=== PATIENT | female | born 1965 | race American Indian/Alaskan Native ===

== ENCOUNTER 2017-02-05 10:00 | Day surgery (SDC) | payer OTHER ==
[2017-02-05] MEDS ORDERED: NACL 0.9% 1000 ML 1,000 ML IV SCH (11:00)
--- NOTE | 2017-02-05 11:02 | Anesthesia Consultation ---
Anesthesia Consult and Med Hx Date of service: 02/05/17 - Airway Anesthetic Teeth Evaluation: Good ROM Head & Neck: Adequate Mental/Hyoid Distance: Adequate Mallampati Class: Class II Intubation Access Assessment: Probably Good - Pulmonary Exam CTA: Yes - Cardiac Exam Cardiac Exam: RRR - Pre-Operative Health Status ASA Pre-Surgery Classification: ASA3 Proposed Anesthetic Plan: MAC - Pulmonary Hx Smoking: Yes (marijuana, occasionally) - Cardiovascular System Hx Hypertension: Yes - Endocrine Hx Hypothyroidism: Yes (thyroidectomy 2011)
--- NOTE | 2017-02-05 11:03 | Anesthesia Day of Surgery ---
Anesthesia Day of Surgery - Day of Surgery Patient Examined: Yes Patient H&P Reviewed: Yes Patient is NPO: Yes
[2017-02-05] MEDS ORDERED: DIPRIVAN 10 MG/ML IV ONE ×3 (12:27→12:44)
--- NOTE | 2017-02-05 12:31 | Operative Report ---
Operative Report Operative Report: Date of procedure: 02/05/2017 Procedure: Colonoscopy. Attending physician: Missael Jeter MD Occupational Health And Safety Adviser: Missael Jeter MD Indication: Patient is a 51-year-old female who presents for screening colonoscopy. A colonoscopy serves to evaluate patient so that treatment may be directed based on the findings. Consent: Informed consent was obtained after advising the patient and family regarding nature of this procedure, its indications, potential benefits as well as possible complications including but not limited to bleeding perforation and adverse reaction to medication, infection as well as other cardiopulmonary complications. An informed written and verbal consent was then obtained after due opportunity was provided for questions and answers. Monitoring: Patient was monitored continuously with pulse oximetry and electrocardiographic recordings as well as blood pressure recordings. Vital signs remained stable throughout this procedure with no untoward events. Preoperative assessment: Patient was assessed immediately prior to this procedure for capacity to tolerate monitored anesthesia care and moderate sedation as well as general anesthesia. Patient's ASA classification is 2, Mallampati class is 2, Hyomental distance is 3. Instrument: [employer] video colonoscope Medications: Propofol given intravenously in divided doses. For details please refer to anesthesia records. Description of procedure: Patient was placed in the left lateral decubitus position after achieving sedation, a digital rectal examination was performed following which the colonoscope was introduced into the anal verge and advanced to the cecum which was identified by the ileocecal valve, the appendiceal orifice, as well as by the cecal strap and direct transillumination. The colonoscope was subsequently withdrawn with careful inspection of all mucosal surfaces. Patient tolerated this procedure well and was subsequently taken to the recovery room. The following findings were noted. Findings: Patient had a few scattered diverticula in the sigmoid colon. The rest of the colon to the cecum was normal. The preparation was adequate. On the retroflex view at the anal verge, patient had internal hemorrhoids. Patient also had an anal fissure. Impression: Mild Sigmoid colon Diverticulosis. Internal Hemorrhoids. Anal fissure. Plan: High-fiber diet. Daily sitz baths as needed 5% lidocaine ointment per rectum every 6 hours as needed Anusol HC suppositories daily at bedtime as needed. [id number] Stool softeners as needed. Repeat colonoscopy in 10 years.
[2017-02-05] MEDS ORDERED: WATER FOR IRRIG STERILE IR ONE (12:37)
--- NOTE | 2017-02-05 12:59 | Discharge Summary ---
Short Stay Discharge Plan Activity: advance as tolerated Weight Bearing Status: Weight Bear as Tolerated Diet: regular Follow up with: PRIMARY CARE, [Primary Care Provider] - 7 Days
[2017-02-05 13:21] VITALS: BP 125/65
--- NOTE | 2017-02-05 13:24 | Post Anesthesia Evaluation ---
- Post Anesthesia Evaluation Patient Participated: Yes Airway Patent: Yes Stable Respiratory Function: Yes Temp > 96.8F: Yes Pain Manageable: Yes Adequeate Hydration: Yes Anesthesia Complications: No Block Receding Appropriately: Not Applicable
== END 2017-02-05 10:01 | disposition home or self-care (01) ==
LOC: GIO 10:00
PROVIDERS: ATTEND Internal Medicine Gastroenterology
DX: Z12.11 Encounter for screening for malignant neoplasm of colon (principal); K57.30 Diverticulosis of large intestine without perforation or abscess without bleeding; K64.8 Other hemorrhoids; K60.2 Anal fissure, unspecified; I10 Essential (primary) hypertension; E03.9 Hypothyroidism, unspecified; F17.210 Nicotine dependence, cigarettes, uncomplicated; F12.90 Cannabis use, unspecified, uncomplicated; Z98.51 Tubal ligation status; Z98.890 Other specified postprocedural states; Z79.899 Other long term (current) drug therapy
CPT/HCPCS: 45378; 81025; J2704; J7030

== ENCOUNTER 2017-08-17 14:01 | Outpatient (CLI) | payer OTHER ==
--- NOTE | 2017-08-24 11:35 | Mammography Report ---
BILATERAL DIGITAL SCREENING MAMMOGRAM with CAD: 08/17/17 CLINICAL: Routine screening. COMPARISON:None available. However, a prior mammogram was apparently done at [facility]. FINDINGS: The breasts are heterogeneously dense, which may obscure small masses. Bilateral asymmetries require comparison with the prior mammogram or additional imaging. IMPRESSION: Bilateral asymmetries requiring further evaluation. BI-RADS CATEGORY: 0 -- Additional Evaluation Required RECOMMENDATION: Comparison with a previous mammogram. We will attempt to obtain a prior mammogram from [facility]. If we do not obtain a prior mammogram for comparison within 30 days, a revised report will be issued recommending a recall for additional imaging. Please be advised that the patient should not schedule an appointment for return until adequate time (at least 2 weeks) has passed for us to obtain the prior mammogram. ACR BI-RADS MAMMOGRAPHIC CODES: 0 = Needs additional imaging evaluation; 1 = Negative; 2 = Benign; 3 = Probably benign; 4 = Suspicious; 5 = Malignant; 6 = Known biopsy-proven malignancy COMMENT: 1. Dense breast tissue, i.e., adenosis, fibrocystic changes, etc., may obscure an underlying neoplasm. 2. Approximately 10% of cancers are not detected with mammography. 3. A negative mammography report should not delay biopsy if a clinically suspicious mass is present. COMMENT: Patient follow-up letters are generated via our [employer] application.
== END 2017-08-17 14:02 | disposition home or self-care (01) ==
LOC: MAMMO 14:01
PROVIDERS: ATTEND Advanced Practice Midwife
DX: Z12.31 Encounter for screening mammogram for malignant neoplasm of breast (principal)
CPT/HCPCS: 77067; G0202

== ENCOUNTER 2019-06-22 18:26 | Emergency (ER) | payer OTHER ==
--- NOTE | 2019-06-22 18:51 | Emergency Department Report ---
Blank Doc - Documentation Documentation: 53-year-old female that presents with left sided chest pain. Denies any SOB. Movement makes it worse and resolved with rest. This initial assessment/diagnostic orders/clinical plan/treatment(s) is/are subject to change based on patient's health status, clinical progression and re- assessment by fellow clinical providers in the ED. Further treatment and workup at subsequent clinical providers discretion. Patient/guardians urged not to elope from the ED as their condition may be serious if not clinically assessed and managed. Initial orders include: 1- Patient sent to [facility] for further evaluation and treatment 2- EKG 3- CXR
--- NOTE | 2019-06-22 19:45 | XRay Report ---
CHEST 2 VIEWS, 06/22/2019 7:18 PM INDICATION: Cough COMPARISON: Chest radiograph, 02/18/2014 FINDINGS: Support devices: None Heart: The cardiac silhouette is normal in size. Lungs/pleura: There is no focal airspace consolidation or significant pleural effusion Additional findings: Evaluation of bony structures demonstrates no evidence of acute bony abnormality . IMPRESSION: 1. No evidence of acute cardiopulmonary process. Signer Name: Kamilla Neely MD Signed: 06/22/2019 7:40 PM Workstation Name: [id number]
--- NOTE | 2019-06-22 20:19 | Emergency Department Report ---
ED Chest Pain HPI - General Chief Complaint: Chest Pain Stated Complaint: CHEST PAIN/LAURA/LFT SIDE PAIN Time Seen by Provider: 06/22/19 18:49 Source: patient Mode of arrival: Ambulatory Limitations: No Limitations - History of Present Illness Initial Comments: This is a 53-year-old -[place] female who presents to the emergency room with left-sided chest pain since this morning. Past medical history of hypertension and anemia. Patient also reports pain is worse with deep breaths and movement. She denies fever, chills, cough, nausea, vomiting, or palpitations. MD Complaint: chest pain -: This morning Onset: awoke with symptoms Pain Location: left chest Pain Radiation: none Severity: moderate Severity scale (0 -10): 8 Quality: sharp Consistency: intermittent Improves With: leaning foward, remaining still Worsens With: exertion, inspiration, movement Other Symptoms: denies: cough, fever, syncope, rash, acid taste in mouth, leg swelling, palpitations, burping Treatments Prior to Arrival: none Aspirin use within the Past 7 Days: (0) No - Related Data Home Medications Medication Instructions Recorded Confirmed Last Taken Bisoprolol/Hctz [Ziac 10-6.25] 1 each PO DAILY 06/01/13 08/25/15 08/25/15 yes Levothyroxine [Synthroid] 112 mcg PO QAM 02/06/15 08/25/15 02/05/17 09:00 yes amLODIPine 2.5 mg PO QDAY 08/25/15 08/25/15 02/05/17 09:00 yes Previous Rx's Medication Instructions Recorded Last Taken Type Acetaminophen/Codeine [Tylenol #3] 1 tab PO Q6H PRN #15 tab 09/18/15 Unknown Rx Indomethacin 50 mg PO Q8H PRN #20 capsule 06/22/19 Unknown Rx Methocarbamol [Robaxin] 500 mg PO BID PRN #15 tablet 06/22/19 Unknown Rx Allergies Allergy/AdvReac Type Severity Reaction Status Date / Time morphine AdvReac ABD Verified 06/22/19 18:27 CRAMPING Heart Score - HEART Score History: Slightly suspicious EKG: Normal Age: 45-65 Risk factors: 1-2 risk factors Troponin: < normal limit HEART Score: 2 ED Review of Systems ROS: Stated complaint: CHEST PAIN/LAURA/LFT SIDE PAIN Other details as noted in HPI Constitutional: denies: chills, fever Respiratory: denies: cough, shortness of breath, wheezing Cardiovascular: chest pain, dyspnea on exertion. denies: palpitations, edema Gastrointestinal: denies: abdominal pain, nausea, diarrhea Musculoskeletal: denies: back pain, joint swelling, arthralgia Skin: denies: rash, lesions Neurological: denies: headache, weakness, paresthesias Psychiatric: denies: anxiety, depression ED Past Medical Hx - Past Medical History Hx Hypertension: Yes Additional medical history: THYROID - Surgical History Hx Cholecystectomy: Yes Additional Surgical History: Thyroidectomy due to goiter, tubal - Social History Smoking Status: Never Smoker Substance Use Type: Marijuana - Medications Home Medications: Home Medications Medication Instructions Recorded Confirmed Last Taken Type Bisoprolol/Hctz [Ziac 10-6.25] 1 each PO DAILY 06/01/13 08/25/15 08/25/15 History yes Levothyroxine [Synthroid] 112 mcg PO QAM 02/06/15 08/25/15 02/05/17 09:00 History yes amLODIPine 2.5 mg PO QDAY 08/25/15 08/25/15 02/05/17 09:00 History yes Acetaminophen/Codeine [Tylenol #3] 1 tab PO Q6H PRN #15 tab 09/18/15 Unknown Rx Indomethacin 50 mg PO Q8H PRN #20 capsule 06/22/19 Unknown Rx Methocarbamol [Robaxin] 500 mg PO BID PRN #15 tablet 06/22/19 Unknown Rx ED Physical Exam - General Limitations: No Limitations General appearance: alert, in no apparent distress - ENT ENT exam: Present: mucous membranes moist - Respiratory Respiratory exam: Present: normal lung sounds bilaterally, chest wall tenderness (tenderness along the left costochondral joint, no erythema or swelling). Absent: respiratory distress, wheezes, rales, rhonchi, stridor - Cardiovascular Cardiovascular Exam: Present: regular rate, normal rhythm. Absent: systolic murmur, diastolic murmur, rubs, gallop - GI/Abdominal GI/Abdominal exam: Present: soft, normal bowel sounds. Absent: distended, tenderness, guarding, rebound, rigid - Neurological Exam Neurological exam: Present: alert, oriented X3, normal gait - Psychiatric Psychiatric exam: Present: normal affect, normal mood - Skin Skin exam: Present: warm, dry, intact, normal color. Absent: rash ED Course Vital Signs 06/22/19 06/22/19 18:51 21:27 Temperature 97.2 F L Pulse Rate 91 H Respiratory 20 16 Rate Blood Pressure 173/79 O2 Sat by Pulse 100 Oximetry ED Medical Decision Making - Lab Data Result diagrams: 06/22/19 21:28 06/22/19 21:28 Lab Results 06/22/19 06/22/19 06/22/19 Range/Units 21:28 21:28 21:28 WBC 6.9 (4.5-11.0) K/mm3 RBC 4.19 (3.65-5.03) M/mm3 Hgb 13.5 (10.1-14.3) gm/dl Hct 39.7 (30.3-42.9) % MCV 95 (79-97) fl MCH 32 (28-32) pg MCHC 34 (30-34) % RDW 13.1 L (13.2-15.2) % Plt Count 254 (140-440) K/mm3 Lymph % (Auto) 25.0 (13.4-35.0) % [place] % (Auto) 8.6 H (0.0-7.3) % Eos % (Auto) 0.9 (0.0-4.3) % Baso % (Auto) 1.3 (0.0-1.8) % Lymph # 1.7 (1.2-5.4) K/mm3 [place] # 0.6 (0.0-0.8) K/mm3 Eos # 0.1 (0.0-0.4) K/mm3 Baso # 0.1 (0.0-0.1) K/mm3 Seg Neutrophils % 64.2 (40.0-70.0) % Seg Neutrophils # 4.4 (1.8-7.7) K/mm3 D-Dimer 135.00 (0-234) ng/mlDDU Sodium 140 (137-145) mmol/L Potassium 3.6 (3.6-5.0) mmol/L Chloride 98.9 (98-107) mmol/L Carbon Dioxide 25 (22-30) mmol/L Anion Gap 20 mmol/L BUN 14 (7-17) mg/dL Creatinine 0.8 (0.7-1.2) mg/dL Estimated GFR > 60 ml/min BUN/Creatinine Ratio 18 % Glucose 131 H (65-100) mg/dL Calcium 9.7 (8.4-10.2) mg/dL Total Bilirubin 0.20 (0.1-1.2) mg/dL AST 17 (5-40) units/L ALT 17 (7-56) units/L Alkaline Phosphatase 58 (35-129) units/L Troponin T < 0.010 (0.00-0.029) ng/mL Total Protein 7.4 (6.3-8.2) g/dL Albumin 4.7 (3.9-5) g/dL Albumin/Globulin Ratio 1.7 % - EKG Data -: No EKG Interpreted by Me (EKG interpreted by attending) EKG shows normal: sinus rhythm Rate: normal - Medical Decision Making Patient was examined by me. Patient is nontoxic appearing and stable. Vitals are normal. Past medical history of hypertension and pleurisy. Obtained labs, EKG, chest x-ray. Chest x-ray negative for acute cardiopulmonary findings. EKG sinus rhythm. There is reproducible pain on the left costochondral joint and pain with movement of left upper extremity. Given analgesics while in the ER. Patient reports feeling a better. Negative tachycardia, tachypnea, pericardial friction rub, refills, and hypotension. Patient was here and history of pleurisy but I don't think today symptoms are related. Negative d-dimer and troponin, all other labs are unremarkable. Acute chest pain. Start Robaxin and indomethacin. Patient informed of results. Instructed to take Tylenol or ibuprofen for pain. Follow up with PCP or return to the ER with worsening symptoms. Patient discharged home in stable condition. - Differential Diagnosis pulmonary embolism, GERD, congestive heart failure, and pneumonia Critical care attestation.: If time is entered above; I have spent that time in minutes in the direct care of this critically ill patient, excluding procedure time. ED Disposition Clinical Impression: Acute chest pain Disposition: - TO HOME OR SELFCARE Is pt being admited?: No Condition: Stable Instructions: Chest Pain (ED), Costochondritis (ED) Additional Instructions: Take indomethacin and Robaxin as needed for pain control. Don't take Robaxin while driving or operating heavy machinery, may cause drowsiness. Follow up with primary care provider in 24-72 hours. Return to ER if chest pain unresolved, shortness of breath, or difficulty breathing. Prescriptions: Indomethacin 50 mg PO Q8H PRN #20 capsule PRN Reason: Pain , Severe (7-10) Methocarbamol [Robaxin] 500 mg PO BID PRN #15 tablet PRN Reason: Muscle Spasm Referrals: RICO ABERNATHY MD [Staff Physician] - 3-5 Days [facility] [Provider Group] - 3-5 Days [facility] [Provider Group] - 3-5 Days Forms: Work/School Release Form(ED) Time of Disposition: 22:34
[2019-06-22] MEDS ORDERED: KETOROLAC 30 MG/1 ML INJ IV ONE (21:05)
[2019-06-22] MEDS ORDERED: ONDANSETRON 4 MG/2 ML INJ ONE (21:33)
[2019-06-22 21:36] LABS: Basophils # (Auto) 0.1 K/mm3 (0.0-0.1); Basophils % (Auto) 1.3 % (0.0-1.8); Eosinophils # (Auto) 0.1 K/mm3 (0.0-0.4); Eosinophils % (Auto) 0.9 % (0.0-4.3); Hematocrit 39.7 % (30.3-42.9); Hemoglobin 13.5 gm/dl (10.1-14.3); Lymphocytes # (Auto) 1.7 K/mm3 (1.2-5.4); Mean Corpuscular HGB Conc 34 % (30-34); Mean Corpuscular Volume 95 fl (79-97); Monocytes # (Auto) 0.6 K/mm3 (0.0-0.8); Monocytes % (Auto) 8.6 % (0.0-7.3); Platelet Count 254 K/mm3 (140-440); Red Blood Count 4.19 M/mm3 (3.65-5.03); Red Cell Distribution Width 13.1 % (13.2-15.2)
[2019-06-22] MEDS ORDERED: ONDANSETRON 4 MG/2 ML INJ IV ONE (21:36)
[2019-06-22 22:01] LABS: Alanine Aminotransferase 17 units/L (7-56); Albumin 4.7 g/dL (3.9-5); BUN/Creatinine Ratio 18; Blood Urea Nitrogen 14 mg/dL (7-17); Calcium 9.7 mg/dL (8.4-10.2); Hemolysis Index 14
[2019-06-22 23:31] VITALS: BP 168/80
== END 2019-06-22 23:27 | disposition home or self-care (01) ==
LOC: ED 18:26
DX: R09.1 Pleurisy (principal); I10 Essential (primary) hypertension; Z88.5 Allergy status to narcotic agent; Z79.899 Other long term (current) drug therapy; Z90.49 Acquired absence of other specified parts of digestive tract; E89.0 Postprocedural hypothyroidism
CPT/HCPCS: 36415; 71046; 80053; 84484; 85025; 85379; 93005; 93010; 96374; 96375; 99284; J1885; J2405

== ENCOUNTER 2019-07-15 12:57 | Outpatient (CLI) | payer OTHER ==
--- NOTE | 2019-07-16 12:56 | Mammography Report ---
DIGITAL SCREENING MAMMOGRAM WITH CAD, 07/15/2019 INDICATION: Routine screening mammography. TECHNIQUE: Digital bilateral 2D mammography was obtained in the craniocaudal and mediolateral obliq ue projections. This examination was interpreted with the benefit of Computer-Aided Detection analysi s. COMPARISON: 08/17/2017 and 05/11/2015 FINDINGS: Breast Density: The breasts are heterogeneously dense, which may obscure small masses. There is no evidence of dominant mass, suspicious calcifications or architectural distortion in eithe r breast. A right inner asymmetry on the CC view is unchanged compared to previous exams. IMPRESSION: No mammographic evidence of malignancy. Follow up recommendation: Routine yearly BI-RADS Category 2: Benign. A "normal" or negative report should not discourage follow up or biopsy of a clinically significant f inding. A written summary of these findings will be mailed to the patient. The patient will be entered into a mammography reporting system which will generate a reminder letter for the patient's next appointmen t at the appropriate interval. The [employer] recommends yearly mammograms starting at age 40 and continuing as l wolfgang as a woman is in good health. Breast MRI is recommended for women with an approximate 20-25% or greater lifetime risk of breast cancer, including women with a strong family history of breast or ova matthew cancer or who have been treated for Hodgkin's disease. Signer Name: Marco Antonio Ron MD Signed: 07/16/2019 12:51 PM Workstation Name: [id number]
== END 2019-07-15 12:58 | disposition home or self-care (01) ==
LOC: MAMMO 12:57
PROVIDERS: ATTEND Family Medicine
DX: Z12.31 Encounter for screening mammogram for malignant neoplasm of breast (principal); I10 Essential (primary) hypertension; Z88.5 Allergy status to narcotic agent
CPT/HCPCS: 77067

== ENCOUNTER 2020-08-09 15:08 | Outpatient (CLI) | payer OTHER ==
--- NOTE | 2020-08-09 17:57 | Mammography Report ---
DIGITAL SCREENING MAMMOGRAM WITH CAD, 08/09/2020 CLINICAL INFORMATION / INDICATION: Routine screening mammography. TECHNIQUE: Digital bilateral 2D mammography was obtained in the craniocaudal and mediolateral obliqu e projections. This examination was interpreted with the benefit of Computer-Aided Detection analysis . COMPARISON: 08/17/2017, 05/11/2015 FINDINGS: Breast Density: The breasts are heterogeneously dense, which may obscure small masses. No dominant mass, suspicious calcifications, or architectural distortion in either breast. No interval change. IMPRESSION: No mammographic evidence of malignancy. Follow up recommendation: Routine yearly BI-RADS Category 1: Negative. A "normal" or negative report should not discourage follow up or biopsy of a clinically significant f inding. A written summary of these findings will be mailed to the patient. The patient will be entered into a mammography reporting system which will generate a reminder letter for the patient's next appointmen t at the appropriate interval. The [employer] recommends yearly mammograms starting at age 40 and continuing as l wolfgang as a woman is in good health. Breast MRI is recommended for women with an approximate 20-25% or greater lifetime risk of breast cancer, including women with a strong family history of breast or ova matthew cancer or who have been treated for Hodgkin's disease. Signer Name: Constance Livingston MD Signed: 08/09/2020 5:53 PM Workstation Name: [id number]
== END 2020-08-09 15:09 | disposition home or self-care (01) ==
LOC: MAMMO 15:08
PROVIDERS: ATTEND Family Medicine
DX: Z12.31 Encounter for screening mammogram for malignant neoplasm of breast (principal)
CPT/HCPCS: 77067

== ENCOUNTER 2021-01-22 09:58 | Emergency (ER) | payer OTHER ==
[2021-01-22 10:04] VITALS: BP 186/105
[2021-01-22] MEDS ORDERED: IBUPROFEN 800 MG TAB PO ONE (12:41)
== END 2021-01-22 13:12 | disposition home or self-care (01) ==
LOC: ED 09:58
DX: S70.02XA Contusion of left hip, initial encounter (principal); M54.6 Pain in thoracic spine; I10 Essential (primary) hypertension; Z90.49 Acquired absence of other specified parts of digestive tract; Z98.890 Other specified postprocedural states; Z79.899 Other long term (current) drug therapy; Z88.8 Allergy status to other drugs, medicaments and biological substances; W10.9XXA Fall (on) (from) unspecified stairs and steps, initial encounter; Y93.89 Activity, other specified; Y92.89 Other specified places as the place of occurrence of the external cause; Y99.8 Other external cause status
CPT/HCPCS: 71046; 72100

== ENCOUNTER 2021-01-25 12:03 | Emergency (ER) | payer OTHER ==
[2021-01-25] MEDS ORDERED: ASPIRIN 325 MG TAB PO ONE (12:10)
--- NOTE | 2021-01-25 13:03 | XRay Report ---
CHEST 2 VIEWS INDICATION / CLINICAL INFORMATION: Chest pain. COMPARISON: 01/22/21 FINDINGS: SUPPORT DEVICES: None. HEART / MEDIASTINUM: No significant abnormality. LUNGS / PLEURA: No significant pulmonary or pleural abnormality. No pneumothorax. ADDITIONAL FINDINGS: No significant additional findings. IMPRESSION: 1. No acute findings. No change. Signer Name: Michael Rajan MD Signed: 01/25/2021 12:59 PM Workstation Name: [id number]
--- NOTE | 2021-01-25 13:03 | Event Note ---
ED Screening Note Date of service: 01/25/21 Time: 13:00 ED Screening Note: 55-year-old female was sent to the ER today by her PCP for chest pain, shortness of breath and to get a CT chest to rule out PE. Patient states that she started with left-sided chest pain about 3 days ago. Is been constant in nature. She states that the pain is worse when she takes a deep breath but also when she moves. She also reports left leg pain which she has been having since about Sunday morning but she states that it was related to an injury. She did have it checked out here and had an x-ray but she states that she still continues to have pain to the posterior aspect of her left leg. Patient states that her PCP did a chest x-ray which showed that she had enlarged heart as well. Has medical history significant for hypertension and thyroid disease. She also reports questionable history of PE a few years ago. She states that she was started on Coumadin but only stayed on it for 30 days. This initial assessment/diagnostic orders/clinical plan/treatment(s) is/are subject to change based on patients health status, clinical progression and re- assessment by fellow clinical providers in the ED. Further treatment and workup at subsequent clinical providers discretion. Patient/guardian urged not to elope from the ED as their condition may be serious if not clinically assessed and managed. Initial orders include: Chest pain order set including CTA chest and ultrasound of the left leg
--- NOTE | 2021-01-25 13:23 | Emergency Department Report ---
<GADIELTIKA Destni - Last Filed: 01/25/21 16:37> ED Chest Pain HPI - General Chief Complaint: Chest Pain Stated Complaint: CHEST PAIN PUI?: No Time Seen by Provider: 01/25/21 13:20 Source: patient Mode of arrival: Ambulatory Limitations: No Limitations - History of Present Illness Initial Comments: Patient is a 55-year-old -[place] obese female that comes to the emergency room with numerous complaints. She states that her PCP sent her to make sure she does not have a pulmonary embolus. She has no hypotension, tachycardia or hypoxia. She was endorsing pleuritic chest pain worse with inspiration over the last 3 days. She also states that her right leg hurts from a prior ankle injury. Patient has denied shortness of breath. She denies fever or chills. She denies any recent trauma. MD Complaint: chest pain -: Gradual, days(s) Onset: other Pain Location: left chest Severity scale (0 -10): 10 Quality: sharp Consistency: intermittent Improves With: nothing Worsens With: inspiration re: nausea Treatments Prior to Arrival: none - Related Data On Oral Contraceptives: No Home Medications Medication Instructions Recorded Confirmed Last Taken Bisoprolol/Hctz [Ziac 10-6.25] 1 each PO DAILY 06/01/13 08/25/15 08/25/15 yes Levothyroxine [Synthroid] 112 mcg PO QAM 02/06/15 08/25/15 02/05/17 09:00 yes amLODIPine 2.5 mg PO QDAY 08/25/15 08/25/15 02/05/17 09:00 yes Allergies Allergy/AdvReac Type Severity Reaction Status Date / Time morphine AdvReac ABD Verified 06/22/19 18:27 CRAMPING Heart Score - HEART Score History: Slightly suspicious EKG: Normal Age: 45-65 Risk factors: 1-2 risk factors Troponin: < normal limit (1220) HEART Score: 2 - EKG Read Time Time EKG Completed: 12:20 EKG Read Time: 12:20 ED Review of Systems Comment: All other systems reviewed and negative ED Past Medical Hx - Past Medical History Previous Medical History?: Yes Hx Hypertension: Yes Hx CVA: No Hx Heart Attack/AMI: No Hx Congestive Heart Failure: No Hx Diabetes: No Hx Deep Vein Thrombosis: No Hx Pulmonary Embolism: Yes (coumadin x 1 m) Hx GERD: No Hx Liver Disease: No Hx Renal Disease: No Hx of Cancer: No Hx Sickle Cell Disease: No Hx Arthritis: No Hx Headaches / Migraines: No Hx Seizures: No Hx Kidney Stones: No Hx Psychiatric Treatment: No Hx Asthma: No Hx COPD: No Hx Tuberculosis: No Hx Dementia: No Hx HIV: No Additional medical history: THYROID - Surgical History Past Surgical History?: Yes Hx Cholecystectomy: Yes Additional Surgical History: Thyroidectomy due to goiter, tubal - Family History Family history: no significant - Social History Smoking Status: Never Smoker Substance Use Type: None - Medications Home Medications: Home Medications Medication Instructions Recorded Confirmed Last Taken Type Bisoprolol/Hctz [Ziac 10-6.25] 1 each PO DAILY 06/01/13 08/25/15 08/25/15 History yes Levothyroxine [Synthroid] 112 mcg PO QAM 02/06/15 08/25/15 02/05/17 09:00 History yes amLODIPine 2.5 mg PO QDAY 08/25/15 08/25/15 02/05/17 09:00 History yes ED Physical Exam - General Limitations: No Limitations General appearance: alert, in no apparent distress - Head Head exam: Present: atraumatic, normocephalic - Eye Eye exam: Present: normal appearance - ENT ENT exam: Present: mucous membranes moist - Neck Neck exam: Present: normal inspection - Respiratory Respiratory exam: Present: normal lung sounds bilaterally. Absent: respiratory distress - Cardiovascular Cardiovascular Exam: Present: regular rate, normal rhythm. Absent: systolic murmur, diastolic murmur, rubs, gallop - GI/Abdominal GI/Abdominal exam: Present: soft, normal bowel sounds - Extremities Exam Extremities exam: Present: normal inspection - Back Exam Back exam: Present: normal inspection - Neurological Exam Neurological exam: Present: alert, oriented X3 - Psychiatric Psychiatric exam: Present: normal affect, normal mood - Skin Skin exam: Present: warm, dry, intact, normal color. Absent: rash SACHIN score - Sachin Score Age > 65: (0) No Aspirin use within the Past 7 Days: (0) No 3 or more CAD Risk Factors: (0) No 2 or more Angina events in past 24 hrs: (0) No Known CAD with more than 50% Stenosis: (0) No Elevated Cardiac Markers: (0) No ST Deviation Greater than 0.5mm: (0) No SACHIN Score: 0 ED Medical Decision Making - Lab Data Result diagrams: 01/25/21 13:30 01/25/21 13:30 - EKG Data -: EKG Interpreted by Me EKG shows normal: sinus rhythm Rate: normal - EKG Data When compared to previous EKG there are: no significant change Interpretation: no acute changes - Radiology Data Radiology results: report reviewed, image reviewed see report - Medical Decision Making Lab Results 01/25/21 01/25/21 01/25/21 Range/Units 13:30 13:30 13:30 WBC 7.5 (4.5-11.0) K/mm3 RBC 3.86 (3.65-5.03) M/mm3 Hgb 12.4 (10.1-14.3) gm/dl Hct 35.9 (30.3-42.9) % MCV 93 (79-97) fl MCH 32 (28-32) pg MCHC 35 H (30-34) % RDW 13.1 L (13.2-15.2) % Plt Count 248 (140-440) K/mm3 Lymph % (Auto) 29.3 (13.4-35.0) % Swain % (Auto) 8.6 H (0.0-7.3) % Eos % (Auto) 1.9 (0.0-4.3) % Baso % (Auto) 1.4 (0.0-1.8) % Lymph # (Auto) 2.2 (1.2-5.4) K/mm3 Swain # (Auto) 0.6 (0.0-0.8) K/mm3 Eos # (Auto) 0.1 (0.0-0.4) K/mm3 Baso # (Auto) 0.1 (0.0-0.1) K/mm3 Seg Neutrophils % 58.8 (40.0-70.0) % Seg Neutrophils # 4.4 (1.8-7.7) K/mm3 Sodium 136 L (137-145) mmol/L Potassium 3.6 (3.6-5.0) mmol/L Chloride 95.9 L (98-107) mmol/L Carbon Dioxide 30 (22-30) mmol/L Anion Gap 14 mmol/L BUN 15 (7-17) mg/dL Creatinine 0.7 (0.6-1.2) mg/dL Estimated GFR > 60 ml/min BUN/Creatinine Ratio 21 % Glucose 83 (65-100) mg/dL Calcium 9.8 (8.4-10.2) mg/dL Total Bilirubin 0.30 (0.1-1.2) mg/dL AST 20 (5-40) units/L ALT 16 (7-56) units/L Alkaline Phosphatase 58 (35-129) units/L Troponin T < 0.010 (0.00-0.029) ng/mL NT-Pro-B Natriuret Pep 49.22 (0-900) pg/mL Total Protein 7.8 (6.3-8.2) g/dL Albumin 4.6 (3.9-5) g/dL Albumin/Globulin Ratio 1.4 % labs noted 12 lead noted xray chest noted normal us neg DVT CT noted Patient has been updated on the findings of all of her test results and is being discharged home with PCP follow-up. PCP will need to determine if she needs follow-up further work-up with cardiology and/or pulmonology. Patient verbalizes understanding of discharge plan of care. On discharge she is alert and oriented. No acute distress. No chest pain. No shortness of breath. She is ambulatory, nontoxic and sey-xdz-dxorceart. - Differential Diagnosis ro pe ED Disposition Clinical Impression: Encounter for medical care, Pleuritic chest pain Disposition: DC-01 TO HOME OR SELFCARE Is pt being admited?: No Does the pt Need Aspirin: No Condition: Stable Instructions: Nonspecific Chest Pain, Adult Additional Instructions: follow up with pcp let your pcp know labs/US/xray and CT completed today you may need to see a heart doctor or specialist for tests not done in the ER diet and activity as tolerated over the counter pain medications if needed stay well hydrated with water. Referrals: PRIMARY CARE, [Primary Care Provider] - 3-5 Days RICO ABERNATHY MD [Staff Physician] - 3-5 Days Time of Disposition: 15:26 <TEA IRENE - Last Filed: 01/28/21 06:59> Heart Score - HEART Score History: Slightly suspicious EKG: Non-specific Age: 45-65 Risk factors: 1-2 risk factors Troponin: < normal limit HEART Score: 3 - Critical Actions Critical Actions: 0-3 pts:0.9-1.7%risk of adverse cardiac event.Candidate for discharge ED Review of Systems ROS: Stated complaint: CHEST PAIN Other details as noted in HPI ED Course Vital Signs 01/25/21 01/25/21 01/25/21 12:06 13:20 13:29 Temperature 98.6 F Pulse Rate 76 77 70 Respiratory 18 12 19 Rate Blood Pressure Blood Pressure 185/92 173/57 [Right] O2 Sat by Pulse 98 100 100 Oximetry 01/25/21 01/25/21 01/25/21 13:31 14:05 14:15 Temperature Pulse Rate 67 Respiratory 14 Rate Blood Pressure 150/57 156/71 171/74 Blood Pressure [Right] O2 Sat by Pulse 99 99 100 Oximetry 01/25/21 01/25/21 01/25/21 14:31 14:45 15:01 Temperature Pulse Rate Respiratory Rate Blood Pressure 159/68 160/74 150/62 Blood Pressure [Right] O2 Sat by Pulse 99 100 100 Oximetry 01/25/21 01/25/21 01/25/21 15:15 15:31 15:52 Temperature Pulse Rate Respiratory Rate Blood Pressure 160/74 148/65 148/65 Blood Pressure [Right] O2 Sat by Pulse 100 100 88 Oximetry 01/25/21 01/25/21 16:01 16:15 Temperature Pulse Rate Respiratory Rate Blood Pressure 143/56 148/65 Blood Pressure [Right] O2 Sat by Pulse 100 96 Oximetry ED Medical Decision Making - Lab Data Result diagrams: 01/25/21 13:30 01/25/21 13:30 Vital Signs 01/25/21 01/25/21 01/25/21 12:06 13:20 13:29 Temperature 98.6 F Pulse Rate 76 77 70 Respiratory 18 12 19 Rate Blood Pressure Blood Pressure 185/92 173/57 [Right] O2 Sat by Pulse 98 100 100 Oximetry 01/25/21 01/25/21 01/25/21 13:31 14:05 14:15 Temperature Pulse Rate 67 Respiratory 14 Rate Blood Pressure 150/57 156/71 171/74 Blood Pressure [Right] O2 Sat by Pulse 99 99 100 Oximetry 01/25/21 01/25/21 01/25/21 14:31 14:45 15:01 Temperature Pulse Rate Respiratory Rate Blood Pressure 159/68 160/74 150/62 Blood Pressure [Right] O2 Sat by Pulse 99 100 100 Oximetry 01/25/21 01/25/21 01/25/21 15:15 15:31 15:52 Temperature Pulse Rate Respiratory Rate Blood Pressure 160/74 148/65 148/65 Blood Pressure [Right] O2 Sat by Pulse 100 100 88 Oximetry 01/25/21 01/25/21 16:01 16:15 Temperature Pulse Rate Respiratory Rate Blood Pressure 143/56 148/65 Blood Pressure [Right] O2 Sat by Pulse 100 96 Oximetry Lab Results 01/25/21 01/25/21 01/25/21 Range/Units 13:30 13:30 13:30 WBC 7.5 (4.5-11.0) K/mm3 RBC 3.86 (3.65-5.03) M/mm3 Hgb 12.4 (10.1-14.3) gm/dl Hct 35.9 (30.3-42.9) % MCV 93 (79-97) fl MCH 32 (28-32) pg MCHC 35 H (30-34) % RDW 13.1 L (13.2-15.2) % Plt Count 248 (140-440) K/mm3 Lymph % (Auto) 29.3 (13.4-35.0) % Swain % (Auto) 8.6 H (0.0-7.3) % Eos % (Auto) 1.9 (0.0-4.3) % Baso % (Auto) 1.4 (0.0-1.8) % Lymph # (Auto) 2.2 (1.2-5.4) K/mm3 Swain # (Auto) 0.6 (0.0-0.8) K/mm3 Eos # (Auto) 0.1 (0.0-0.4) K/mm3 Baso # (Auto) 0.1 (0.0-0.1) K/mm3 Seg Neutrophils % 58.8 (40.0-70.0) % Seg Neutrophils # 4.4 (1.8-7.7) K/mm3 Sodium 136 L (137-145) mmol/L Potassium 3.6 (3.6-5.0) mmol/L Chloride 95.9 L (98-107) mmol/L Carbon Dioxide 30 (22-30) mmol/L Anion Gap 14 mmol/L BUN 15 (7-17) mg/dL Creatinine 0.7 (0.6-1.2) mg/dL Estimated GFR > 60 ml/min BUN/Creatinine Ratio 21 % Glucose 83 (65-100) mg/dL Calcium 9.8 (8.4-10.2) mg/dL Total Bilirubin 0.30 (0.1-1.2) mg/dL AST 20 (5-40) units/L ALT 16 (7-56) units/L Alkaline Phosphatase 58 (35-129) units/L Troponin T < 0.010 (0.00-0.029) ng/mL NT-Pro-B Natriuret Pep 49.22 (0-900) pg/mL Total Protein 7.8 (6.3-8.2) g/dL Albumin 4.6 (3.9-5) g/dL Albumin/Globulin Ratio 1.4 % - EKG Data -: EKG Interpreted by Me EKG shows normal: sinus rhythm Rate: normal Critical care attestation.: If time is entered above; I have spent that time in minutes in the direct care of this critically ill patient, excluding procedure time. ED Disposition Is pt being admited?: No Does the pt Need Aspirin: No
[2021-01-25 13:48] LABS: Basophils # (Auto) 0.1 K/mm3 (0.0-0.1); Basophils % (Auto) 1.4 % (0.0-1.8); Eosinophils # (Auto) 0.1 K/mm3 (0.0-0.4); Eosinophils % (Auto) 1.9 % (0.0-4.3); Hematocrit 35.9 % (30.3-42.9); Hemoglobin 12.4 gm/dl (10.1-14.3); Lymphocytes # (Auto) 2.2 K/mm3 (1.2-5.4); Lymphocytes % (Auto) 29.3 % (13.4-35.0); Mean Corpuscular HGB Conc 35 % (30-34); Mean Corpuscular Volume 93 fl (79-97); Monocytes # (Auto) 0.6 K/mm3 (0.0-0.8); Monocytes % (Auto) 8.6 % (0.0-7.3); Platelet Count 248 K/mm3 (140-440); Red Blood Count 3.86 M/mm3 (3.65-5.03); Red Cell Distribution Width 13.1 % (13.2-15.2)
--- NOTE | 2021-01-25 14:06 | Vascular Lab Report ---
VL venous duplex LE LT INDICATION / CLINICAL INFORMATION: leg pain. TECHNIQUE: Duplex doppler imaging was performed using venous compression and other maneuvers. COMPARISON: None available. FINDINGS: No venous thrombosis is identified within the visualized extremity vasculature. ADDITIONAL FINDINGS: None. IMPRESSION: 1. No sonographic evidence for DVT in the visualized left lower extremity vasculature. Signer Name: Parker Lazcano MD Signed: 01/25/2021 2:02 PM Workstation Name: [id number]
[2021-01-25] MEDS ORDERED: ONDANSETRON 4 MG/2 ML INJ IV ONE (14:12)
[2021-01-25 14:14] LABS: Alanine Aminotransferase 16 units/L (7-56); Albumin 4.6 g/dL (3.9-5); Blood Urea Nitrogen 15 mg/dL (7-17); Calcium 9.8 mg/dL (8.4-10.2); Hemolysis Index 33
[2021-01-25 14:15] LABS: BUN/Creatinine Ratio 21
--- NOTE | 2021-01-25 16:26 | Cat Scan Report ---
CTA CHEST WITH IV CONTRAST INDICATION / CLINICAL INFORMATION: ro PE; per PE protocol 100 ML OMNI 350 . TECHNIQUE: Axial CT images were obtained through the chest after injection of 100 cc Omnipaque 300 milligrams pe rcent IV contrast. 3 plane MIP and/or 3D reconstructions were produced. All CT scans at this location are performed using CT dose reduction for ALARA by means of automated exposure control. COMPARISON: None available. FINDINGS: PULMONARY ARTERIES: No pulmonary emboli. THORACIC AORTA: No significant abnormality. HEART: No significant abnormality. CORONARY ARTERIES: No significant calcification. PLEURA: No pleural effusion. No pneumothorax. LYMPH NODES: No significant adenopathy. LUNGS: No acute air space or interstitial disease. ADDITIONAL FINDINGS: None. UPPER ABDOMEN: No acute findings. SKELETAL STRUCTURES: No significant osseous abnormality. IMPRESSION: 1. No CT evidence for pulmonary embolism. 2. No acute findings. Signer Name: Misbah Zuluaga MD Signed: 01/25/2021 4:21 PM Workstation Name: [id number]
[2021-01-25 16:30] VITALS: BP 148/65
--- NOTE | 2021-02-03 10:43 | Electrocardiograph Report ---
[facility] Test Date: 2021-01-25 Test Time: 12:16:11 Pat Name: ZACKARY ALEXANDER Department: Room: Gender: F Shipping Lead Person: GELY : 1965 Requested By: TIKA RAMESH Order Number: [id number] Reading MD: Roxy Quach Measurements Intervals [place]den Rate: 76 P: 59 SD: 158 QRS: 22 QRSD: 96 T: 15 QT: 397 QTc: 446 Interpretive Statements Sinus rhythm No previous ECG available for comparison Electronically Signed On 02-03-2021 10:43:08 EDT by Roxy Quach
== END 2021-01-25 16:41 | disposition home or self-care (01) ==
LOC: ED 12:03
DX: R07.89 Other chest pain (principal); I10 Essential (primary) hypertension; Z90.49 Acquired absence of other specified parts of digestive tract; Z90.89 Acquired absence of other organs; Z98.890 Other specified postprocedural states; Z79.899 Other long term (current) drug therapy; Z88.8 Allergy status to other drugs, medicaments and biological substances
CPT/HCPCS: 36415; 71046; 71275; 80053; 83880; 84484; 85025; 93005; 93971; 96374; 99284; J2405; Q9967

== ENCOUNTER 2021-08-10 13:17 | Outpatient (CLI) | payer OTHER ==
--- NOTE | 2021-08-11 11:10 | Mammography Report ---
DIGITAL SCREENING MAMMOGRAM WITH TOMOSYNTHESIS WITH CAD, 08/10/2021 CLINICAL INFORMATION / INDICATION: Routine Screening Mammography. TECHNIQUE: Digital bilateral 2D and 3D mammography with tomosynthesis was obtained in the craniocaud al and mediolateral oblique projections. Computer-Aided Detection (CAD) analysis was used for interp retation of this study. COMPARISON: 08/09/2020. FINDINGS: Breast Density: There are scattered areas of fibroglandular density. No dominant mass, suspicious calcifications, or architectural distortion in either breast. IMPRESSION: No mammographic evidence of malignancy. Follow up recommendation: Routine yearly BI-RADS Category 1: NEGATIVE A "normal" or negative report should not discourage follow up or biopsy of a clinically significant f inding. A written summary of these findings will be mailed to the patient. The patient will be entered into a mammography reporting system which will generate a reminder letter for the patient's next appointmen t at the appropriate interval. The [employer] recommends yearly mammograms starting at age 40 and continuing as l wolfgang as a woman is in good health. Breast MRI is recommended for women with an approximate 20-25% or greater lifetime risk of breast cancer, including women with a strong family history of breast or ova matthew cancer or who have been treated for Hodgkin's disease. Signer Name: Imer Smiley MD Signed: 08/11/2021 11:06 AM Workstation Name: [id number]
== END 2021-08-10 13:18 | disposition home or self-care (01) ==
LOC: MAMMO 13:17
PROVIDERS: ATTEND Family Medicine
DX: Z12.31 Encounter for screening mammogram for malignant neoplasm of breast (principal)
CPT/HCPCS: 77067